=== PATIENT | female | born 1965 | race Two or more races ===

== ENCOUNTER 2020-11-04 20:28 | Inpatient (IN) | payer OTHER ==
[~2020-11-04] VITALS: Ht 165.1 cm; Wt 99.8 kg
[2020-11-04] MEDS ORDERED: DEXAMETHASONE 4 MG/ML, 1ML PO ONE (21:00)
[2020-11-04] MEDS ORDERED: PLEASE ENTER ALLERGIES MC SCH (21:00)
--- NOTE | 2020-11-04 23:42 | NUR ---
CHANGE Rn: PT AMBULATORY C STEADY GAIT FROM LOBBY TO ROOM AT THIS TIME.
--- NOTE | 2020-11-04 23:50 | NUR ---
PATIENT REPORTS POSITIVE COVID TEST AND SHE HAS BEEN SICK FOR 7 DAYS. PATIENT STATES SHE HAS HAD INCREASE SOB TODAY AND BECAME WORRIED SHE WAS GETTING WORSE.
[2020-11-04] MEDS ORDERED: DEXAMETHASONE 4 MG TABLET ONE (23:56)
[2020-11-05 00:09] LABS: BASOPHILS % (AUTO) 1 % (0-1); EOSINOPHILS % (AUTO) 0 % (1-7); LYMPHOCYTES % (AUTO) 26 % (22-44); MEAN CORPUSCULAR HEMOGLOBIN 29.5 pg (27.0-34.8); MEAN CORPUSCULAR HGB CONC 34.8 g/dL (32.4-35.8); MEAN PLATELET VOLUME 8.8 fL (7.4-10.4); MONOCYTES % (AUTO) 10 % (2-9); NEUTROPHILS % (AUTO) 63 % (42-75); PLATELET COUNT 136 x10^3/uL (130-400); RED BLOOD COUNT 5.57 x10^6/uL (3.82-5.3); RED CELL DISTRIBUTION WIDTH 13.7 % (9.6-15.2)
[2020-11-05 00:17] LABS: ALBUMIN 3.8 g/dL (3.4-5.0); ANION GAP 9 mmol/L (5-15); CALCIUM 8.8 mg/dL (8.5-10.1); CHLORIDE 102 mmol/L (98-107)
--- NOTE | 2020-11-05 00:21 | NUR ---
ROADTEST O2 SATS 95%
--- NOTE | 2020-11-05 01:52 | NUR ---
MD HAD PATIENT O2 SAT AT 87%
[2020-11-05] MEDS ORDERED: DOXYCYCLINE 100MG TABLET PO ONE (02:00)
[2020-11-05] MEDS ORDERED: CEFTRIAXONE 1,000 MG in DEXTROSE 5% 50 ML IVPB ONE (02:00)
--- NOTE | 2020-11-05 02:46 | NUR ---
Pt to be admitted to MEDICAL, room 358. Report called to KIERRA BUNCH.
[2020-11-05 03:36] VITALS: BP 141/65
[2020-11-05] MEDS ORDERED: PHARMACY MAY ADJ FOR RENAL FX MC PRN (05:00)
[2020-11-05] MEDS ORDERED: ONDANSETRON 2MG/ML, 2ML IVPush PRN (05:00)
[2020-11-05] MEDS: ENOXAPARIN 40 MG/0.4 ML SQ SCH (05:00)
[2020-11-05] MEDS ORDERED: MELATONIN 5 MG TABLET PO PRN (05:00)
[2020-11-05] MEDS ORDERED: LABETALOL 5MG/ML, 20ML IVPush PRN (05:00)
[2020-11-05] MEDS ORDERED: POLYETHYLENE GLYCOL 17 GM PACKET PO PRN (05:00)
[2020-11-05] MEDS: BENZONATATE 100 MG CAPSULE PO SCH ×4 (05:03→23:27)
[2020-11-05] MEDS: DEXAMETHASONE 4 MG/ML, 1ML IVPush SCH ×4 (05:03→23:27)
[2020-11-05 08:59] VITALS: BP 152/88
[2020-11-05] MEDS: ASCORBIC ACID 500 MG TABLET PO SCH ×2 (09:39→21:28)
[2020-11-05] MEDS: FAMOTIDINE 20 MG TABLET PO SCH ×2 (09:39→21:28)
[2020-11-05] MEDS: ZINC SULFATE 220 MG CAPSULE PO SCH (09:39)
[2020-11-05] MEDS: IBUPROFEN 200 MG TABLET PO PRN (10:19)
[2020-11-05 13:00] VITALS: BP 148/72
[2020-11-05 19:49] VITALS: BP 153/79
[2020-11-06 01:25] VITALS: BP 148/88
[2020-11-06] MEDS: DEXAMETHASONE 4 MG/ML, 1ML IVPush SCH ×4 (05:45→22:11)
[2020-11-06] MEDS: ENOXAPARIN 40 MG/0.4 ML SQ SCH (05:53)
[2020-11-06 07:54] VITALS: BP 138/72
[2020-11-06] MEDS: FAMOTIDINE 20 MG TABLET PO SCH ×2 (08:22→22:11)
[2020-11-06] MEDS: ZINC SULFATE 220 MG CAPSULE PO SCH (08:22)
[2020-11-06] MEDS: BENZONATATE 100 MG CAPSULE PO SCH ×3 (08:22→22:10)
[2020-11-06] MEDS: ASCORBIC ACID 500 MG TABLET PO SCH ×2 (08:22→22:11)
[2020-11-06 12:18] VITALS: BP 144/76
[2020-11-06] MEDS ORDERED: IBUP-1902 PO (13:20)
[2020-11-06] MEDS ORDERED: DEXA6TAB6 PO (13:20)
[2020-11-06] MEDS ORDERED: ASCO500T9 PO (13:20)
[2020-11-06] MEDS ORDERED: BENZ-17 PO (13:20)
[2020-11-06] MEDS ORDERED: ZINC220C8 PO (13:20)
[2020-11-06 19:14] VITALS: BP 153/87
[2020-11-06] MEDS: IBUPROFEN 200 MG TABLET PO PRN (22:11)
[2020-11-07 00:08] VITALS: BP 123/75
[2020-11-07] MEDS: ENOXAPARIN 40 MG/0.4 ML SQ SCH (05:30)
[2020-11-07] MEDS: DEXAMETHASONE 4 MG/ML, 1ML IVPush SCH ×3 (05:30→16:42)
[2020-11-07] MEDS: IBUPROFEN 200 MG TABLET PO PRN ×2 (05:34→12:33)
[2020-11-07 06:03] LABS: BASOPHILS % (AUTO) 0 % (0-1); EOSINOPHILS % (AUTO) 0 % (1-7); LYMPHOCYTES % (AUTO) 9 % (22-44); MEAN CORPUSCULAR HEMOGLOBIN 29.3 pg (27.0-34.8); MEAN CORPUSCULAR HGB CONC 34.6 g/dL (32.4-35.8); MEAN PLATELET VOLUME 8.6 fL (7.4-10.4); MONOCYTES % (AUTO) 5 % (2-9); NEUTROPHILS % (AUTO) 86 % (42-75); PLATELET COUNT 209 x10^3/uL (130-400); RED BLOOD COUNT 5.07 x10^6/uL (3.82-5.3); RED CELL DISTRIBUTION WIDTH 13.7 % (9.6-15.2)
[2020-11-07 06:36] LABS: ANION GAP 10 mmol/L (5-15); CALCIUM 8.8 mg/dL (8.5-10.1); CHLORIDE 101 mmol/L (98-107)
[2020-11-07 06:37] LABS: CREATININE 0.82 mg/dL (0.55-1.02)
[2020-11-07] MEDS: ZINC SULFATE 220 MG CAPSULE PO SCH (08:35)
[2020-11-07] MEDS: ASCORBIC ACID 500 MG TABLET PO SCH (08:36)
[2020-11-07] MEDS: BENZONATATE 100 MG CAPSULE PO SCH ×2 (08:36→16:42)
[2020-11-07] MEDS: FAMOTIDINE 20 MG TABLET PO SCH (08:36)
[2020-11-07 08:43] VITALS: BP 147/77
[2020-11-07 14:14] VITALS: BP 111/70
== END 2020-11-07 17:03 | disposition home or self-care (01) | DRG 177 ==
LOC: ED 11-05 00:10 → INTOOBSV 11-05 02:34 → OBSVTOIN 11-05 02:34 → EDIP 11-05 02:34 → 3N 11-05 03:20
PROVIDERS: ADMIT Internal Medicine; ATTEND Internal Medicine
DX: U07.1 COVID-19 (principal); J96.01 Acute respiratory failure with hypoxia; J12.82 Pneumonia due to coronavirus disease 2019
CPT/HCPCS: 36415; 71045; 80048; 82040; 83036; 83735; 84100; 84145; 85025; 87040; 93005; 96374; 99285; G0378; J0696; J1100; J1650